=== PATIENT | female | born 1980 | race Caucasian/White ===

== ENCOUNTER 2018-06-15 08:44 | Inpatient (IN) | payer BC, OTHER ==
[~2018-06-15] VITALS: Ht 167.6 cm; Wt 95.0 kg
[~2018-06-15 08:44] MED LIST: CEFTRIAXONE; FIORICET TABLE1 EACH; FUROSEMIDE 40 MG; GABAPENTIN MC; K-DUR20 ME2; Z.0.DIAZEPAM10 MG PO; Z.0.LEVOTHYROXINE75 PO; Z.0.NORCO 10-325 T1 PO; Z.0.TEGRETOL200 MG PO; Z.0.ZOFRAN4 MG PO; [UNRECOGNIZED DRUG - OTHER]
[2018-06-15] MEDS ORDERED: ONDANSETRON HCL INJ 2 MG/ML VIAL IV STA (09:26)
[2018-06-15] MEDS ORDERED: KETOROLAC TROMETHAMINE 30 MG/ML VIAL IV STA (09:26)
[2018-06-15] MEDS ORDERED: FAMOTIDINE 20 MG/2 ML VIAL IV STA (09:26)
[2018-06-15] MEDS ORDERED: SODIUM CHLORIDE 0.9% 1000ML 1,000 ML IV ONE ×2 (09:30→11:15)
[2018-06-15] MEDS ORDERED: SODIUM CHLORIDE 0.9% 1000ML 1,000 ML ONE (09:32)
[2018-06-15 09:38] LABS: BASOPHILS % 0.5 % (0.0-1.0); EOSINOPHILS # (AUTO) 0.1 (0.0-0.4); EOSINOPHILS % 1.5 % (0.0-6.0); HEMATOCRIT 41.4 % (34.2-44.1); HEMOGLOBIN 13.7 g/dL (12.0-16.0); LYMPHOCYTES # (AUTO) 1.1 (1.0-3.2); LYMPHOCYTES % 16.6 % (18.0-39.1); MEAN CORPUSCULAR HEMOGLOBIN 29.7 pg (28-32); MEAN CORPUSCULAR HGB CONC 33.1 g/dL (31-35); MEAN CORPUSCULAR VOLUME 89.8 fL (81-99); MONOCYTES # (AUTO) 0.4 (0.2-0.8); MONOCYTES % 6.7 % (4.4-11.3); NEUTROPHILS # (AUTO) 4.9 (2.1-6.9); NEUTROPHILS % 74.5 % (38.7-80.0); PLATELET COUNT 288 x10e3/uL (140-360); RED BLOOD COUNT 4.61 x10e6/uL (3.6-5.1); RED CELL DISTRIBUTION WIDTH 15.2 % (11.7-14.4)
[2018-06-15 09:59] LABS: ALANINE AMINOTRANSFERASE 19 IU/L (0-55); ALBUMIN 3.9 g/dL (3.5-5.0); ALBUMIN/GLOBULIN RATIO 1.3 (0.8-2.0); ALKALINE PHOSPHATASE 56 IU/L (40-150); ANION GAP 13.6 mmol/L (8-16); BLOOD UREA NITROGEN 8 mg/dL (7-26); BUN/CREATININE RATIO 11 (6-25); CALCIUM 9.1 mg/dL (8.4-10.2); CARBON DIOXIDE 21 mmol/L (22-29); CHLORIDE 108 mmol/L (98-107); CREATININE, SERUM 0.76 mg/dL (0.57-1.11); EST GLOMERULAR FILTRATION RATE > 60 ML/MIN (60-); GLUCOSE 112 mg/dL (74-118); LIPASE 13 U/L (8-78); POTASSIUM 3.6 mmol/L (3.5-5.1); SODIUM 139 mmol/L (136-145)
[2018-06-15 10:48] LABS: CLARITY,URINE SL CLOUDY (CLEAR); COLOR,URINE AMBER (YELLOW); PROTEIN,URINE DIPSTICK 1+ (NEGATIVE); URINE UROBILINOGEN 0.2 mg/dL (0.2 - 1)
[2018-06-15 10:49] LABS: BILIRUBIN,URINE 2+ (NEGATIVE); KETONES,URINE 3+ (NEGATIVE); LEUKOCYTE ESTERASE ,URINE NEGATIVE (NEGATIVE); NITRITE,URINE NEGATIVE (NEGATIVE)
[2018-06-15 10:53] LABS: AMPHETAMINES SCREEN,URINE NEGATIVE (NEGATIVE); BENZODIAZEPINES SCREEN,URINE POSITIVE (NEGATIVE); PHENCYCLIDINE SCREEN,URINE NEGATIVE (NEGATIVE)
[2018-06-15 11:00] LABS: BACTERIA,URINE FEW /HPF; RBC,URINE 0-5 /HPF (0-5)
[2018-06-15 11:01] LABS: EPITHELIAL CELLS,URINE FEW /LPF; MUCUS,URINE FEW (RARE)
--- NOTE | 2018-06-15 11:56 | Diagnostic Imaging Report ---
EXAM: CT Abdomen and Pelvis WITH contrast INDICATION: \S\diffuse abd pain \[id number] \S\1020 COMPARISON: None. TECHNIQUE: Abdomen and pelvis were scanned utilizing a multidetector helical scanner from the lung base to the pubic symphysis after administration of IV contrast. Coronal and sagittal reformations were obtained. Routine protocol was performed. Scan was performed when during portal venous phase. IV CONTRAST: 100 mL of Isovue-370 ORAL CONTRAST: None. COMPLICATIONS: None RADIATION DOSE: Total DLP: 669.19 mGy*cm Estimated effective dose: (DLP x 0.015 x size factor) mSv CTDIvol has been reviewed. It is below the limits set by the Radiation Protocol Committee (RPC). FINDINGS: LINES and TUBES: Posterior lower back spine stimulator device in place with tip within spinal canal extending superiorly and outside the [id number] LOWER THORAX: Unremarkable HEPATOBILIARY: No focal hepatic lesions. No biliary ductal dilation. GALLBLADDER: No radio-opaque stones or sludge. No wall thickening. SPLEEN: No splenomegaly. PANCREAS: No focal masses or ductal dilatation. ADRENALS: No adrenal nodules KIDNEYS/URETERS: Kidneys enhance symmetrically. No hydronephrosis. No cystic or solid mass lesions. No stones. GI TRACT: No abnormal distention or evidence of bowel obstruction. Areas of mild colonic wall thickening, especially the transverse colon as seen on coronal image 54. Appendix is normal. PELVIC ORGANS/BLADDER: Retroverted uterus and adnexa are unremarkable on CT assessment. Bladder is under distended, limiting evaluation. LYMPH NODES: No lymphadenopathy. Nonspecific subcentimeter retroperitoneal lymph nodes. VESSELS: Unremarkable. PERITONEUM / RETROPERITONEUM: No free air or fluid. BONES: No acute osseous abnormality. Old bilateral inferior pubic rami fracture deformities. SOFT TISSUES: Unremarkable. Evidence of abdominal wall hernia repair with surgical mesh in place. IMPRESSION: 1. Areas of mild colonic wall thickening, could represent mild infectious/inflammatory colitis in the appropriate clinical setting. Otherwise, no acute inflammatory process in the abdomen/pelvis. Signed by: Dr. Hubert Barrera MD on 06/15/2018 11:52 AM
[2018-06-15 12:00] VITALS: BP 119/74
[2018-06-15] MEDS ORDERED: LEVOFLOXACIN 500MG/D5W 100ML IV SCH (12:45)
[2018-06-15] MEDS ORDERED: MORPHINE SULFATE 2 MG/ML SYR IV PRN (12:45)
[2018-06-15] MEDS: METRONIDAZOLE 500MG/NS 100ML 100 ML IV SCH ×3 (13:14→23:45)
[2018-06-15] MEDS: MORPHINE SULFATE INJ 4 MG/ML INJ IV PRN ×4 (13:14→22:19)
[2018-06-15] MEDS: ONDANSETRON HCL INJ 2 MG/ML VIAL IV PRN ×3 (13:14→22:19)
[2018-06-15] MEDS: LEVOFLOXACIN 500MG/D5W 100ML 100 ML IV SCH (14:03)
--- NOTE | 2018-06-15 14:48 | History and Physical ---
CHIEF COMPLAINT: Abdominal pain. HISTORY OF PRESENT ILLNESS: This is a 38-year-old white woman who presents to [facility] emergency room with a 2-3 week history of worsening abdominal pain accompanied with nausea, vomiting and diarrhea. The patient states that she was diagnosed with colitis 2 weeks ago at a urgent care clinic, and was prescribed oral ciprofloxacin and metronidazole. The patient states she could not take this medication because of nausea and vomiting. The patient states that her abdominal pain is quite severe. She is concerned because her mother also has issues with chronic abdominal pain. Moreover, the patient states she suffers from chronic neck and lower back pain, and actually had an appointment today with a neurosurgeon. The patient states that she alternates between Tylenol No. 4 and hydrocodone in the form of [place] for chronic neck and lower back pain. The patient also states that she is scheduled to see her digital media director tomorrow, namely Dr. Jay Moctezuma. In the emergency room, the patient had a normal comprehensive metabolic profile. Lactic acid level was also normal. Urinalysis done in the emergency room revealed 3+ ketones, otherwise unremarkable. Urine toxicology was positive for opiates, benzodiazepines, cocaine, and cannabinoids. The patient's complete blood count was normal. The patient underwent a CT of the abdomen and pelvis with contrast in the emergency room that revealed areas of mild colonic wall thickening that the radiologist thought could represent infectious/inflammatory colitis. No other acute abnormalities appreciated. The patient was admitted for further evaluation and treatment. REVIEW OF SYSTEMS GENERAL: The patient states she has lost 25 pounds in the last 3 weeks unintentionally. She has had shaking chills and subjective fever in the last few days. HEENT: No headaches. No visual changes. CARDIOVASCULAR: No chest pain, shortness of breath or cough. GI: As per HPI. No melena. No hematochezia. : No UTI symptoms. NEUROMUSCULAR: Complains of chronic neck and lower back pain. PAST MEDICAL HISTORY 1. Post cervical laminectomy syndrome. 2. Chronic neck and lower back pain. 3. Mild obesity. 4. Tobacco use. 5. Gastritis. 6. Hypothyroidism. ALLERGIES: PLASTIC TAPE. SURGICAL HISTORY 1. Cervical spine surgery multiple times. 2. Bilateral tubal ligation. 3. section 3 times. 4. Hernia repair. 5. Spinal cord stimulator implantation. SOCIAL HISTORY: The woman is . Lives with her . She is unemployed. No tobacco or drugs. Drinks alcohol occasionally. FAMILY HISTORY: The patient believes her mother also has chronic colitis. HOME MEDICATIONS 1. Fioricet 1 tablet daily as needed for headaches. 2. Tegretol 400 mg at night. 3. Diazepam 2 mg t.i.d. for back spasm. 4. Gabapentin 100 mg t.i.d. 5. [place] 5 per 325 mg 1-2 pills every 4 hours p.r.n. back pain. 6. Levothyroxine 75 mcg daily. 7. Methadone 10 mg once daily. 8. Zofran 4 mg twice a day as needed for nausea and vomiting. 9. Potassium chloride 40 mEq daily. PHYSICAL EXAMINATION GENERAL: She is awake, alert and fully oriented. She is pleasant and cooperative with exam. VITALS: Blood pressure is 126/97, pulse 75, respiratory rate 18, oxygen saturation 98% on room air, temperature 98. Height is 5 feet 6 inches and weight is 175 pounds. INTEGUMENT: Skin is warm and dry. No pallor or diaphoresis. HEENT: Anicteric sclerae. Dry mucous membranes. NECK: Supple. CARDIOVASCULAR: Tachycardic rate and regular rhythm. LUNGS: No rales. No rhonchi. No wheezing. ABDOMEN: Soft. She has exquisite tenderness in the entire abdomen particularly in the midepigastric and right lower quadrant area. No organomegaly or masses appreciated. EXTREMITIES: No edema or deformity. NEURO: Intact. IMPRESSION 1. Colitis. 2. Polysubstance abuse. 3. Gastritis. PLAN 1. Highly recommend that the patient stop using illicit drugs. 2. Intravenous fluids. 3. Intravenous antibiotics. 4. Antiemetics. 5. Consult gastroenterology. 6. Will check TSH level. I spent 45 minutes in the care of this patient. Job#: [id number] VINAYAK MARCELINO
[2018-06-15] MEDS ORDERED: IOPAMIDOL 370 MG/ML 200 ML INFUS..BTL INJ ONE (14:58)
[2018-06-15] MEDS ORDERED: SODIUM CHLORIDE 0.9% 50ML 50 ML ONE (14:58)
[2018-06-15 15:45] VITALS: BP 126/58
[2018-06-15 15:47] VITALS: BP 126/58
[2018-06-15] MEDS: SODIUM CHLORIDE 0.9% 1000ML 1,000 ML IV SCH (15:51)
[2018-06-15 16:00] VITALS: BP 126/58
[2018-06-15] MEDS: FAMOTIDINE 20 MG/2 ML VIAL IV SCH (16:46)
[2018-06-15] MEDS ORDERED: METRONIDAZOLE 500MG/NS 100ML IV SCH (18:00)
[2018-06-15 19:54] VITALS: BP 118/59
[2018-06-15 20:00] VITALS: BP 118/59
[2018-06-15] MEDS ORDERED: PANTOPRAZOLE 40 MG 10ML VIAL IV STA (21:58)
[2018-06-15] MEDS ORDERED: PANTOPRAZOL 40MG/SOD CHL 0.9% 250 ML IV SCH (22:00)
[2018-06-15] MEDS ORDERED: METOCLOPRAMIDE HCL 10 MG/2ML VIAL IV STA (22:02)
[2018-06-15] MEDS ORDERED: BISACODYL 5 MG TAB EC PO ONE ×3 (22:15→23:30)
[2018-06-15] MEDS ORDERED: METOCLOPRAMIDE HCL 10 MG/2ML VIAL IV ONE (22:15)
[2018-06-15] MEDS ORDERED: PANTOPRAZOLE 40 MG 10ML VIAL IV ONE (22:15)
[2018-06-15] MEDS ORDERED: CITRATE OF MAGNESIA 300ML BOTTLE PO ONE (23:00)
[2018-06-15] MEDS: PANTOPRAZOLE INJ 40 MG in SODIUM CHLORIDE 0.9% 50ML 50 ML IV SCH (23:09)
[2018-06-16] MEDS ORDERED: BISACODYL 5 MG TAB EC PO ONE
[2018-06-16] MEDS ORDERED: METOCLOPRAMIDE HCL 10 MG/2ML VIAL IV SCH
[2018-06-16 01:09] VITALS: BP 120/58
[2018-06-16] MEDS: ONDANSETRON HCL INJ 2 MG/ML VIAL IV PRN ×3 (02:00→10:40)
[2018-06-16] MEDS: MORPHINE SULFATE INJ 4 MG/ML INJ IV PRN ×3 (02:00→10:40)
[2018-06-16] MEDS: PANTOPRAZOLE INJ 40 MG in SODIUM CHLORIDE 0.9% 50ML 50 ML IV SCH ×2 (04:24→08:15)
[2018-06-16] MEDS: SODIUM CHLORIDE 0.9% 1000ML 1,000 ML IV SCH ×3 (04:45→10:55)
[2018-06-16] MEDS ORDERED: CITRATE OF MAGNESIA 300ML BOTTLE PO ONE (05:00)
[2018-06-16 05:23] LABS: BASOPHILS % 0.7 % (0.0-1.0); EOSINOPHILS # (AUTO) 0.1 (0.0-0.4); EOSINOPHILS % 2.3 % (0.0-6.0); HEMATOCRIT 34.8 % (34.2-44.1); HEMOGLOBIN 10.9 g/dL (12.0-16.0); LYMPHOCYTES # (AUTO) 1.4 (1.0-3.2); LYMPHOCYTES % 22.7 % (18.0-39.1); MEAN CORPUSCULAR HEMOGLOBIN 29.4 pg (28-32); MEAN CORPUSCULAR HGB CONC 31.3 g/dL (31-35); MEAN CORPUSCULAR VOLUME 93.8 fL (81-99); MONOCYTES # (AUTO) 0.5 (0.2-0.8); MONOCYTES % 7.9 % (4.4-11.3); NEUTROPHILS % 66.2 % (38.7-80.0); PLATELET COUNT 186 x10e3/uL (140-360); RED BLOOD COUNT 3.71 x10e6/uL (3.6-5.1)
[2018-06-16 05:46] LABS: ALANINE AMINOTRANSFERASE 13 IU/L (0-55); ALBUMIN 3.2 g/dL (3.5-5.0); ALBUMIN/GLOBULIN RATIO 1.7 (0.8-2.0); ALKALINE PHOSPHATASE 38 IU/L (40-150); ANION GAP 13.4 mmol/L (8-16); BLOOD UREA NITROGEN 7 mg/dL (7-26); BUN/CREATININE RATIO 11 (6-25); CARBON DIOXIDE 19 mmol/L (22-29); CHLORIDE 112 mmol/L (98-107); CREATININE, SERUM 0.66 mg/dL (0.57-1.11); EST GLOMERULAR FILTRATION RATE > 60 ML/MIN (60-); GLUCOSE 88 mg/dL (74-118); POTASSIUM 3.4 mmol/L (3.5-5.1); SODIUM 141 mmol/L (136-145)
[2018-06-16 05:48] VITALS: BP 113/59
[2018-06-16] MEDS: METOCLOPRAMIDE HCL 10 MG/2ML VIAL IV SCH ×3 (05:58→12:00)
[2018-06-16] MEDS: METRONIDAZOLE 500MG/NS 100ML 100 ML IV SCH ×2 (05:58→12:00)
[2018-06-16 08:00] VITALS: BP 113/59
[2018-06-16 08:09] VITALS: BP 146/87
[2018-06-16] MEDS: LEVOFLOXACIN 500MG/D5W 100ML 100 ML IV SCH (09:00)
[2018-06-16] MEDS: FAMOTIDINE 20 MG/2 ML VIAL IV SCH ×2 (09:00→17:00)
[2018-06-16] MEDS: PANTOPRAZOL 40MG/SOD CHL 0.9% 50 ML IV SCH ×2 (09:30→14:30)
[2018-06-16] MEDS ORDERED: POTASSIUM CHLORIDE 20MEQ/100ML 100 ML IV ONE (09:45)
[2018-06-16] MEDS ORDERED: POTASSIUM CHLORIDE 10 MEQ TABCR PO NR (09:45)
[2018-06-16 10:11] LABS: AMPHETAMINES SCREEN,URINE NEGATIVE (NEGATIVE); BENZODIAZEPINES SCREEN,URINE POSITIVE (NEGATIVE); PHENCYCLIDINE SCREEN,URINE NEGATIVE (NEGATIVE)
[2018-06-16 11:51] VITALS: BP 129/76
[2018-06-16] MEDS ORDERED: HYOSCYAMINE SULFATE 0.5 MG/ML AMP ONE (13:59)
[2018-06-16] MEDS ORDERED: PROPOFOL IV EMULSION 10 MG/ML 50 ML VIAL ONE (13:59)
[2018-06-16 15:45] LABS: WBC,FECAL (FECAL LACTOFERRIN) POSITIVE (NEGATIVE)
--- NOTE | 2018-06-16 15:47 | Operative Report ---
DATE OF PROCEDURE: June 16, 2018 REFERRING PHYSICIAN: Dr. Alexa Solis. PROCEDURE PERFORMED: Esophagogastroduodenoscopy with biopsies and a colonoscopy with polypectomy and biopsies. INDICATIONS FOR ESOPHAGOGASTRODUODENOSCOPY: Upper abdominal pain, nausea and vomiting. INDICATIONS FOR COLONOSCOPY: Crampy lower abdominal pain, diarrhea, colitis per CT scan. MEDICATION: Patient was done under MAC. Please see anesthesiologist's note. PROCEDURE: With the patient in the left lateral decubitus position, flexible fiberoptic Olympus gastroscope was introduced into the esophagus under direct visualization without any difficulty. There was some patchy erythema noted in distal esophagus. The scope was then advanced with ease into the stomach. Mucosa overlying the antrum and the body revealed some patchy erythema and low-grade to moderate edema and biopsies were obtained and sent to stain for H. pylori. Pylorus was of normal contour and shape, was intubated with ease, and the scope was advanced all the way to the 2nd portion of the duodenum. The scope was then withdrawn slowly. Mucosa overlying the proximal and 2nd portion and the duodenal bulb appeared to be within normal limits. The scope was then withdrawn back into the stomach and retroflexed and mucosa overlying the fundus and the cardia appeared to be within normal limits. The scope was then straightened out. The stomach was decompressed. The scope was subsequently withdrawn. Patient tolerated the procedure well. IMPRESSIONS 1. Distal esophagitis. 2. Gastritis, biopsied. Biopsies sent to stain for Helicobacter pylori. PLAN: Follow up histology. Initiate Protonix 40 mg 1 p.o. q.a.m. a.c. Patient was then turned around. After adequate lubrication of the anal canal, a flexible fiberoptic Olympus colonoscope was inserted into the rectum with ease and advanced all the way to the cecum. Mucosa overlying the cecum appeared to be within normal limits. The ileocecal valve was intubated and the scope was advanced into the terminal ileum. Mucosa overlying the terminal ileum revealed some patchy intense erythema and biopsies were obtained. The scope was then withdrawn back into the colon. The mucosa overlying the ascending and the transverse appeared to be within normal limits. There were some mild patchy inflammatory changes in the left colon. Random biopsies were obtained. One polyp was snared from the descending colon and one polyp was snared and one polyp was hot biopsied from the sigmoid colon. The scope was then retroflexed into the distal rectum and moderate-size internal hemorrhoids were noted, none of which were actively bleeding. The scope was then straightened out and was subsequently withdrawn after securing an adequate stool specimen that was sent for the appropriate stool studies. Patient tolerated the procedure well. IMPRESSIONS 1. Descending colon polyp, snared. 2. Mild patchy left-sided colitis. 3. Sigmoid colon polyps times 2, one snared, one hot biopsied. 4. Internal hemorrhoids, none actively bleeding. PLAN: Follow up histology. Follow up stool studies. Initiate GI soft diet. Patient might benefit from a followup colonoscopy in 3 years. Job#: [id number] TA cc:ALEXA SOLIS DO
[2018-06-16] MEDS ORDERED: FENTANYL CITRATE/PF 100MCG/2 ML INJ ONE (15:53)
[2018-06-16] MEDS ORDERED: MIDAZOLAM HCL 5MG/ML 2ML VIAL ONE (15:53)
[2018-06-16] MEDS ORDERED: KETAMINE HCL INJ 50 MG/ML 10 ML VIAL ONE (15:53)
[2018-06-16 15:55] VITALS: BP 127/67
[2018-06-17 13:41] LABS: C DIFFICILE TOXIN A&B AMP PROB NEGATIVE (NEGATIVE)
== END 2018-06-16 17:50 | disposition home or self-care (01) | DRG 392 ==
LOC: ER 08:44 → ERHOLD 12:57 → MED/SURG2 15:04
PROC: 0DB78ZX Excision of Stomach, Pylorus, Via Natural or Artificial Opening Endoscopic, Diagnostic (ICD-10-PCS; principal; 2018-06-16 13:00)
PROC: 0DBM8ZX Excision of Descending Colon, Via Natural or Artificial Opening Endoscopic, Diagnostic (ICD-10-PCS; 2018-06-16 13:00)
PROC: 0DBN8ZX Excision of Sigmoid Colon, Via Natural or Artificial Opening Endoscopic, Diagnostic (ICD-10-PCS; 2018-06-16 13:00)
PROC: 0DBB8ZX Excision of Ileum, Via Natural or Artificial Opening Endoscopic, Diagnostic (ICD-10-PCS; 2018-06-16 13:00)
DX: K52.9 Noninfective gastroenteritis and colitis, unspecified (principal); F19.10 Other psychoactive substance abuse, uncomplicated; K29.70 Gastritis, unspecified, without bleeding; K63.5 Polyp of colon; K64.8 Other hemorrhoids; F14.10 Cocaine abuse, uncomplicated; F12.10 Cannabis abuse, uncomplicated; F11.10 Opioid abuse, uncomplicated; G89.29 Other chronic pain
CPT/HCPCS: 36415; 74177; 80053; 80307; 81001; 83605; 83630; 83690; 83993; 84443; 84702; 85025; 87045; 87177; 87328; 87493; 88305; 88312; 99284; J1885; J1956; J1980; J2250; J2270; J2405; J2765; J3480; J7030; Q9967

== ENCOUNTER 2020-04-27 22:00 | Inpatient (IN) | payer OTHER ==
[~2020-04-27] VITALS: Ht 165.1 cm; Wt 93.1 kg
[2020-04-27 22:37] VITALS: BP 153/77
[2020-04-27 22:49] VITALS: BP 153/77
[2020-04-27] MEDS: ONDANSETRON HCL INJ 2MG/ML 2ML 2 MG/ML VIAL IV PRN (23:25)
[2020-04-27] MEDS: MORPHINE SULFATE 2 MG/ML SYR 1ML IV PRN (23:25)
[2020-04-28] VITALS (7 sets, daily range): BP systolic 118–140; BP diastolic 75–87
[2020-04-28] MEDS: MORPHINE SULFATE 2 MG/ML SYR 1ML IV PRN ×7 (04:00→20:15)
[2020-04-28 06:08] LABS: BASOPHILS % 0.3 % (0.0-1.0); EOSINOPHILS % 0.4 % (0.0-6.0); HEMATOCRIT 39.4 % (34.2-44.1); HEMOGLOBIN 12.8 g/dL (12.0-16.0); LYMPHOCYTES # (AUTO) 1.7 (1.0-3.2); LYMPHOCYTES % 22.8 % (18.0-39.1); MEAN CORPUSCULAR HEMOGLOBIN 31.7 pg (28-32); MEAN CORPUSCULAR HGB CONC 32.5 g/dL (31-35); MEAN CORPUSCULAR VOLUME 97.5 fL (81-99); MONOCYTES # (AUTO) 0.6 (0.2-0.8); NEUTROPHILS % 68.1 % (38.7-80.0); PLATELET COUNT 253 x10e3/uL (140-360); RED BLOOD COUNT 4.04 x10e6/uL (3.6-5.1); RED CELL DISTRIBUTION WIDTH 12.6 % (11.7-14.4)
[2020-04-28 06:34] LABS: ALANINE AMINOTRANSFERASE 9 IU/L (0-55); ALBUMIN 3.5 g/dL (3.5-5.0); ALBUMIN/GLOBULIN RATIO 1.2 (0.8-2.0); ALKALINE PHOSPHATASE 62 IU/L (40-150); AMYLASE 24 U/L (25-125); ANION GAP 14.1 mmol/L (8-16); BLOOD UREA NITROGEN 9 mg/dL (7-26); BUN/CREATININE RATIO 14 (6-25); CALCIUM 8.3 mg/dL (8.4-10.2); CARBON DIOXIDE 24 mmol/L (22-29); CHLORIDE 107 mmol/L (98-107); CREATININE, SERUM 0.64 mg/dL (0.57-1.11); EST GLOMERULAR FILTRATION RATE > 60 ML/MIN (60-); GLUCOSE 107 mg/dL (74-118); LIPASE 7 U/L (8-78); POTASSIUM 3.1 mmol/L (3.5-5.1); SODIUM 142 mmol/L (136-145)
[2020-04-28] MEDS: ONDANSETRON HCL INJ 2MG/ML 2ML 2 MG/ML VIAL IV PRN ×3 (06:53→16:45)
--- NOTE | 2020-04-28 07:00 | NUR ---
RCD PT AT BED PT IS ALERT AND ORIENTED PT RESTING ON BED IV PATENT NG TUBE AND LOW INTERMITTENT SUCTION WORKING WELL PT NPO BED LOW AND LOCKED CALL LIGHT IN REACH
--- NOTE | 2020-04-28 07:40 | NUR ---
PT NPO AND POTASSIUM LEVEL 3.1 PAGED AND NOTIFIED FAINA POTTER NO NEW ORDERS
[2020-04-28] MEDS: PANTOPRAZOLE 40 MG 10ML VIAL IV SCH ×2 (09:00→16:48)
[2020-04-28] MEDS: D5NS/KCL 20MEQ 1,000 ML IV SCH (09:30)
[2020-04-28] MEDS ORDERED: HYDRALAZINE HCL 20 MG/ML VIAL IV PRN (09:45)
[2020-04-28] MEDS ORDERED: ACETAMINOPHEN 325 MG TAB PO PRN (09:45)
[2020-04-28] MEDS ORDERED: POTASSIUM CHLORIDE 20MEQ/100ML 100 ML IV ONE (10:00)
[2020-04-28] MEDS: FAMOTIDINE 20 MG/2 ML VIAL IV SCH (10:35)
--- NOTE | 2020-04-28 11:50 | Diagnostic Imaging Report ---
Exam: KUB - 2 views Indication: Small bowel obstruction Comparison: None Findings: NG tube with tip and side-port in the stomach. Nonobstructive bowel gas pattern. No free air. No acute osseous injury. Old healed bilateral pubic fractures. A linear metallic structure projects over the L3 vertebral body. Impression: NG tube terminates in the stomach. Nonobstructive bowel gas pattern. No free air. Signed by: Paresh De La Cruz MD on 04/28/2020 11:46 AM
--- NOTE | 2020-04-28 18:41 | NUR ---
PT RESTING ON BED BED SIDE REPORT GIVEN TO ONCOMING NURSE
--- NOTE | 2020-04-28 19:20 | NUR ---
Patient received sitting up in bed. AAO x 4. Patient had no complaints of pain. Respirations even and non-labored. Safety measures implemented. NGT in left nares connected to LIWS. Patient instructed to call for assistance when needed. Call light within reach.
--- NOTE | 2020-04-28 19:35 | Consultation ---
DATE OF CONSULTATION: 04/28/2020 CHIEF COMPLAINT: Abdominal pain. HISTORY OF PRESENT ILLNESS: The patient is a 39-year-old female with 2-day history of pain in the periumbilical region with nausea and vomiting. She denies fever or chills. No diarrhea. PAST MEDICAL HISTORY: Significant for morbid obesity, hypothyroidism, post cervical laminectomy syndrome, chronic back and neck pain. PAST SURGICAL HISTORY: Positive for abdominal hernia repair x2 with mesh, cervical spine surgery, tubal ligation, C-sections, and spinal cord stimulator implantation. ALLERGIES: THE PATIENT DENIED DRUG ALLERGIES. SOCIAL HABITS: She denies smoking or alcohol use. REVIEW OF SYSTEMS: She denies chest pain, shortness of breath, cough, or fevers. PHYSICAL EXAMINATION: VITAL SIGNS: Stable. She is afebrile. GENERAL: The patient is awake, alert, in moderate discomfort. HEENT: Sclerae nonicteric. NECK: Supple. LUNGS: Clear. HEART: Regular rate and rhythm. ABDOMEN: Mildly distended with some guarding in the epigastrium. NG tube put out bilious fluid in copious amount. EXTREMITIES: No cyanosis or edema. LABORATORY DATA: White cell count is 7 and hemoglobin of 12. Creatinine of 0.6. Liver function tests unremarkable. X-ray of the abdomen showed NG tube in stomach with nonobstructive bowel pattern. ASSESSMENT: Intestinal obstruction, likely secondary to adhesions from multiple abdominal surgery. PLAN: Continue NG tube and ice chips. Serial abdominal exam and x-ray. Esau Almaguer MD DNRoxy/MODL /[id number]
[2020-04-29] VITALS (8 sets, daily range): BP systolic 114–164; BP diastolic 66–90
[2020-04-29] MEDS: MORPHINE SULFATE 2 MG/ML SYR 1ML IV PRN ×6 (00:23→19:27)
[2020-04-29] MEDS: D5NS/KCL 20MEQ 1,000 ML IV SCH (00:23)
[2020-04-29 05:34] LABS: BASOPHILS % 0.6 % (0.0-1.0); EOSINOPHILS # (AUTO) 0.1 (0.0-0.4); EOSINOPHILS % 1.3 % (0.0-6.0); HEMOGLOBIN 12.7 g/dL (12.0-16.0); LYMPHOCYTES # (AUTO) 1.9 (1.0-3.2); LYMPHOCYTES % 27.1 % (18.0-39.1); MEAN CORPUSCULAR HEMOGLOBIN 31.7 pg (28-32); MEAN CORPUSCULAR HGB CONC 32.6 g/dL (31-35); MEAN CORPUSCULAR VOLUME 97.3 fL (81-99); MONOCYTES # (AUTO) 0.6 (0.2-0.8); MONOCYTES % 8.7 % (4.4-11.3); NEUTROPHILS # (AUTO) 4.4 (2.1-6.9); PLATELET COUNT 318 x10e3/uL (140-360); RED BLOOD COUNT 4.01 x10e6/uL (3.6-5.1); RED CELL DISTRIBUTION WIDTH 12.5 % (11.7-14.4)
[2020-04-29 05:58] LABS: ALANINE AMINOTRANSFERASE 10 IU/L (0-55); ALBUMIN 3.4 g/dL (3.5-5.0); ALBUMIN/GLOBULIN RATIO 1.3 (0.8-2.0); ALKALINE PHOSPHATASE 70 IU/L (40-150); ANION GAP 9.2 mmol/L (8-16); BLOOD UREA NITROGEN 14 mg/dL (7-26); BUN/CREATININE RATIO 18 (6-25); CALCIUM 8.5 mg/dL (8.4-10.2); CARBON DIOXIDE 32 mmol/L (22-29); CHLORIDE 110 mmol/L (98-107); CREATININE, SERUM 0.76 mg/dL (0.57-1.11); EST GLOMERULAR FILTRATION RATE > 60 ML/MIN (60-); GLUCOSE 113 mg/dL (74-118); MAGNESIUM 1.9 MG/DL (1.3-2.1); POTASSIUM 3.2 mmol/L (3.5-5.1); SODIUM 148 mmol/L (136-145)
--- NOTE | 2020-04-29 06:43 | NUR ---
Walking rounds done. Patient resting comfortably. Bed-side shift report given to oncoming nurse regarding patient's status.
--- NOTE | 2020-04-29 07:40 | Diagnostic Imaging Report ---
EXAM: Abdomen Radiograph 1 View(s) INDICATION: ^sbo ^[id number] ^[id number] COMPARISON: 04/28/2020 FINDINGS: The nasogastric tube overlies the stomach. The bowel gas pattern remains nonspecific. No abnormal abdominal soft tissue calcification. No acute osseous abnormality. No free intraperitoneal air. IMPRESSION: Nonspecific bowel gas pattern. Signed by: Jose Blount MD on 04/29/2020 7:36 AM
--- NOTE | 2020-04-29 08:30 | NUR ---
dc ng tube by order 500 ml in the bottle
[2020-04-29] MEDS: ONDANSETRON HCL INJ 2MG/ML 2ML 2 MG/ML VIAL IV PRN ×2 (08:50→19:27)
[2020-04-29] MEDS: PANTOPRAZOLE 40 MG 10ML VIAL IV SCH ×2 (09:00→17:00)
[2020-04-29] MEDS: FAMOTIDINE 20 MG/2 ML VIAL IV SCH ×2 (09:00→17:00)
[2020-04-29] MEDS ORDERED: POTASSIUM CHLORIDE 20 MEQ TAB CR PO ONE (10:30)
--- NOTE | 2020-04-29 18:56 | NUR ---
PT RESTING ON BED BED SIDE REPORT GIVEN TO ONCOMING NURSE
--- NOTE | 2020-04-29 19:30 | NUR ---
received report from day nurse. patient is resting comfortably in the bed. bed is in lowest position and call light is within reach. will continue to monitor patient.
[2020-04-30] VITALS (8 sets, daily range): BP systolic 117–145; BP diastolic 80–86
[2020-04-30] MEDS: MORPHINE SULFATE 2 MG/ML SYR 1ML IV PRN ×7 (00:01→23:35)
[2020-04-30 06:08] LABS: BASOPHILS % 0.4 % (0.0-1.0); EOSINOPHILS # (AUTO) 0.1 (0.0-0.4); EOSINOPHILS % 1.4 % (0.0-6.0); HEMATOCRIT 40.6 % (34.2-44.1); HEMOGLOBIN 13.4 g/dL (12.0-16.0); LYMPHOCYTES # (AUTO) 1.7 (1.0-3.2); LYMPHOCYTES % 22.5 % (18.0-39.1); MEAN CORPUSCULAR HEMOGLOBIN 32.5 pg (28-32); MEAN CORPUSCULAR VOLUME 98.5 fL (81-99); MONOCYTES # (AUTO) 0.6 (0.2-0.8); MONOCYTES % 7.5 % (4.4-11.3); NEUTROPHILS # (AUTO) 5.2 (2.1-6.9); NEUTROPHILS % 67.9 % (38.7-80.0); PLATELET COUNT 312 x10e3/uL (140-360); RED BLOOD COUNT 4.12 x10e6/uL (3.6-5.1); RED CELL DISTRIBUTION WIDTH 12.3 % (11.7-14.4)
--- NOTE | 2020-04-30 06:40 | NUR ---
patient is resting comfortably in the bed. bed is in the lowest position and call light is within reach.
[2020-04-30 06:45] LABS: ALANINE AMINOTRANSFERASE 35 IU/L (0-55); ALBUMIN 3.7 g/dL (3.5-5.0); ALBUMIN/GLOBULIN RATIO 1.3 (0.8-2.0); ALKALINE PHOSPHATASE 85 IU/L (40-150); ANION GAP 12.2 mmol/L (8-16); BLOOD UREA NITROGEN 15 mg/dL (7-26); BUN/CREATININE RATIO 20 (6-25); CALCIUM 8.9 mg/dL (8.4-10.2); CARBON DIOXIDE 26 mmol/L (22-29); CHLORIDE 107 mmol/L (98-107); CREATININE, SERUM 0.75 mg/dL (0.57-1.11); EST GLOMERULAR FILTRATION RATE > 60 ML/MIN (60-); GLUCOSE 95 mg/dL (74-118); MAGNESIUM 1.8 MG/DL (1.3-2.1); POTASSIUM 3.2 mmol/L (3.5-5.1); SODIUM 142 mmol/L (136-145)
--- NOTE | 2020-04-30 07:48 | NUR ---
informed Ya Wesley NP of pt's potassium level this morning. no new orders received. will continue to monitor.
[2020-04-30] MEDS: PANTOPRAZOLE 40 MG 10ML VIAL IV SCH ×2 (09:23→16:24)
[2020-04-30] MEDS: FAMOTIDINE 20 MG/2 ML VIAL IV SCH ×2 (09:23→16:24)
[2020-04-30] MEDS ORDERED: POTASSIUM CHLORIDE 20 MEQ TAB CR PO ONE (10:00)
[2020-04-30] MEDS ORDERED: BISACODYL 10 MG SUPP PR ONE (10:00)
[2020-04-30] MEDS ORDERED: POTASSIUM CHLORIDE 20 MEQ TAB CR PO STA (19:38)
--- NOTE | 2020-04-30 19:38 | NUR ---
received new order from Dr Moctezuma for potassium replacement
[2020-04-30] MEDS: ONDANSETRON HCL INJ 2MG/ML 2ML 2 MG/ML VIAL IV PRN (20:06)
[2020-05-01] VITALS (9 sets, daily range): BP systolic 101–145; BP diastolic 72–81
[2020-05-01] MEDS: MORPHINE SULFATE 2 MG/ML SYR 1ML IV PRN ×5 (05:00→20:51)
[2020-05-01] MEDS: ONDANSETRON HCL INJ 2MG/ML 2ML 2 MG/ML VIAL IV PRN (05:00)
[2020-05-01 05:12] LABS: BASOPHILS % 0.5 % (0.0-1.0); EOSINOPHILS # (AUTO) 0.1 (0.0-0.4); EOSINOPHILS % 1.5 % (0.0-6.0); HEMATOCRIT 37.4 % (34.2-44.1); HEMOGLOBIN 12.3 g/dL (12.0-16.0); LYMPHOCYTES % 25.8 % (18.0-39.1); MEAN CORPUSCULAR HEMOGLOBIN 31.5 pg (28-32); MEAN CORPUSCULAR HGB CONC 32.9 g/dL (31-35); MEAN CORPUSCULAR VOLUME 95.9 fL (81-99); MONOCYTES # (AUTO) 0.7 (0.2-0.8); NEUTROPHILS % 62.9 % (38.7-80.0); PLATELET COUNT 296 x10e3/uL (140-360); RED CELL DISTRIBUTION WIDTH 12.3 % (11.7-14.4)
[2020-05-01 05:49] LABS: ALANINE AMINOTRANSFERASE 77 IU/L (0-55); ALBUMIN 3.4 g/dL (3.5-5.0); ALBUMIN/GLOBULIN RATIO 1.3 (0.8-2.0); ALKALINE PHOSPHATASE 74 IU/L (40-150); ANION GAP 10.9 mmol/L (8-16); BLOOD UREA NITROGEN 6 mg/dL (7-26); BUN/CREATININE RATIO 8 (6-25); CALCIUM 8.6 mg/dL (8.4-10.2); CARBON DIOXIDE 29 mmol/L (22-29); CHLORIDE 107 mmol/L (98-107); CREATININE, SERUM 0.78 mg/dL (0.57-1.11); EST GLOMERULAR FILTRATION RATE > 60 ML/MIN (60-); GLUCOSE 100 mg/dL (74-118); MAGNESIUM 1.8 MG/DL (1.3-2.1); POTASSIUM 3.9 mmol/L (3.5-5.1); SODIUM 143 mmol/L (136-145)
--- NOTE | 2020-05-01 07:00 | NUR ---
RCD PT AT BED PT IS ALERT AND ORIENTED PT RESTING ON BED IV PATENT BY SALINE FLUSH BED LOW AND LOCKED CALL LIGHT IN REACH
[2020-05-01] MEDS: FAMOTIDINE 20 MG/2 ML VIAL IV SCH ×2 (08:29→17:12)
[2020-05-01] MEDS: PANTOPRAZOLE 40 MG 10ML VIAL IV SCH ×2 (08:29→17:12)
--- NOTE | 2020-05-01 11:15 | NUR ---
MD IN TO SEE PATIENT, NEW ORDER RECEIVED.
--- NOTE | 2020-05-01 14:39 | NUR ---
PATIENT HAD A BM. NOTIFIED, NEW ORDER RECEIVED TO CANCEL CT SCAN AND ADVANCE DIET TO GI SOFT.
--- NOTE | 2020-05-01 19:21 | NUR ---
BEDSIDE SHIFT REPORT GIVEN TO ON COMING NURSE.
--- NOTE | 2020-05-01 19:23 | NUR ---
RECEIVED REPORT FROM GERMAN NURSE.
--- NOTE | 2020-05-02 | NUR ---
DR. QUINN GAMBOA VISITED, PATIENT RESTING IN BED, STATED TO MD SHE'S FEELING BETTER, PATIENT STATED TO HIM THAT SHE HAD 3 BOWEL MOVEMENTS, HE STATED TO THE MD THAT HER STOOL WAS SOFT BUT TO ME EARLIER SHE STATED IT WAS HARD. WILL CONTINUE TO MONITOR. CALL LIGHT IN REACH. MEDICATE ORDERED.
[2020-05-02] MEDS: ONDANSETRON HCL INJ 2MG/ML 2ML 2 MG/ML VIAL IV PRN ×2 (00:53→09:29)
[2020-05-02] MEDS: MORPHINE SULFATE 2 MG/ML SYR 1ML IV PRN ×3 (00:53→09:29)
[2020-05-02 00:58] VITALS: BP 115/81
[2020-05-02 05:11] VITALS: BP 114/66
[2020-05-02 05:37] LABS: BASOPHILS % 0.4 % (0.0-1.0); EOSINOPHILS # (AUTO) 0.2 (0.0-0.4); EOSINOPHILS % 1.6 % (0.0-6.0); HEMATOCRIT 37.3 % (34.2-44.1); HEMOGLOBIN 12.1 g/dL (12.0-16.0); LYMPHOCYTES # (AUTO) 1.9 (1.0-3.2); MEAN CORPUSCULAR HEMOGLOBIN 31.4 pg (28-32); MEAN CORPUSCULAR HGB CONC 32.4 g/dL (31-35); MEAN CORPUSCULAR VOLUME 96.9 fL (81-99); MONOCYTES # (AUTO) 0.8 (0.2-0.8); MONOCYTES % 8.2 % (4.4-11.3); NEUTROPHILS # (AUTO) 6.5 (2.1-6.9); NEUTROPHILS % 69.4 % (38.7-80.0); PLATELET COUNT 289 x10e3/uL (140-360); RED BLOOD COUNT 3.85 x10e6/uL (3.6-5.1); RED CELL DISTRIBUTION WIDTH 12.4 % (11.7-14.4)
[2020-05-02 06:09] LABS: ALANINE AMINOTRANSFERASE 55 IU/L (0-55); ALBUMIN 3.1 g/dL (3.5-5.0); ALBUMIN/GLOBULIN RATIO 1.2 (0.8-2.0); ALKALINE PHOSPHATASE 69 IU/L (40-150); ANION GAP 12.9 mmol/L (8-16); BLOOD UREA NITROGEN 7 mg/dL (7-26); BUN/CREATININE RATIO 9 (6-25); CALCIUM 8.7 mg/dL (8.4-10.2); CARBON DIOXIDE 28 mmol/L (22-29); CHLORIDE 108 mmol/L (98-107); CREATININE, SERUM 0.77 mg/dL (0.57-1.11); EST GLOMERULAR FILTRATION RATE > 60 ML/MIN (60-); GLUCOSE 97 mg/dL (74-118); MAGNESIUM 1.9 MG/DL (1.3-2.1); POTASSIUM 3.9 mmol/L (3.5-5.1); SODIUM 145 mmol/L (136-145)
--- NOTE | 2020-05-02 06:14 | NUR ---
PATIENT WAS MEDICATED EARLIER FOR COMPLAINT OF ABDOMINAL PAIN. CONTINUE RESTING IN BED WATCHING TV, CALL LIGHT REMAIN IN REACH. WILL CONTINUE TO MONITOR.
--- NOTE | 2020-05-02 07:00 | NUR ---
Received bedside shift report from off going night nurse. Patient in stable condition, no s/s of distress noted. No pain voiced. Bed in lowest position and locked. Call light within reach.
--- NOTE | 2020-05-02 07:04 | NUR ---
REPORT GIVEN TO AM NURSE. PATIENT CONTINUE RESTING, NO COMPLAINTS OF PAIN. CALL LIGHT IN REACH.
[2020-05-02 07:22] VITALS: BP 124/87
[2020-05-02 08:10] VITALS: BP 125/87
[2020-05-02] MEDS: PANTOPRAZOLE 40 MG 10ML VIAL IV SCH (08:15)
[2020-05-02] MEDS: FAMOTIDINE 20 MG/2 ML VIAL IV SCH (08:15)
[2020-05-02] MEDS ORDERED: DOCUSATE SODIU100 MG PO (10:02)
[2020-05-02] MEDS ORDERED: PANTOPRAZOLE SO40 MG PO (10:02)
--- NOTE | 2020-05-02 10:30 | NUR ---
Pt thankful for compassionate care during hospitalization. Pt states she will d/c soon. [employer] provided hospitality and instructions on how to contact a computer systems software architect if needed. No need to follow at this time. QUIQUE HUYNH [facility] Spiritual Care Department O: [phone]
--- NOTE | 2020-05-02 11:07 | NUR ---
Patient discharged home -Patient off the unit @ 1047 via wheelchair accompanied by PCT to the lobby. Patient in stable condition, No s/s of distress noted. No pain voiced. IV access removed with tip intact. All personal items taken with the patient. Discharge teaching and instructions given to the patient. Patient verbalized understanding. Prescriptions along with discharge paperwork given to the patient.
--- NOTE | 2020-05-02 22:24 | Discharge Summary ---
ADMISSION DIAGNOSES: 1. Small bowel obstruction. 2. Obesity with BMI of 34.1. 3. Hypokalemia. DISCHARGE DIAGNOSES: 1. Small bowel obstruction. 2. Obesity with BMI of 34.1. 3. Hypokalemia. HISTORY: Chronic back pain. SURGICAL HISTORY: Back surgery, umbilical hernia repair, x3. FAMILY HISTORY: Noncontributory. SOCIAL HISTORY: The patient admits to smoking less than one pack of cigarettes a day and occasional alcohol use. HOSPITAL COURSE: A 39-year-old female admitted with complaints of periumbilical abdominal pain described as twisting for the last 3 weeks. She had associated nausea and vomiting. Symptoms continued to worsen, so she came to the ER. She admits to having a liquid stool on the day prior to admission. On admission, outpatient CT of the abdomen and pelvis showed small bowel dilation. The patient was kept n.p.o. IV fluids were started. GI and Surgery were consulted. The patient had an NG tube placed and diet was advanced as tolerated. Prior to discharge, the patient had multiple bowel movements and is tolerating a regular diet. She was discharged home with new prescriptions for Colace and Protonix. She will follow up with primary care and GI in 1 to 2 weeks. The patient understands instructions and agrees to plan. Dictated by Ya Wesley NP Freddy Aburto MD DION/MODL /[id number]
== END 2020-05-02 10:47 | disposition home or self-care (01) | DRG 390 ==
LOC: MED/SURG2 22:00 → OBSVTOIN 04-28 10:41
PROVIDERS: ADMIT Internal Medicine; ATTEND Internal Medicine
DX: K56.51 Intestinal adhesions [bands], with partial obstruction (principal); E66.9 Obesity, unspecified; E87.6 Hypokalemia; Z91.048 Other nonmedicinal substance allergy status; Z72.0 Tobacco use; E03.9 Hypothyroidism, unspecified; Z86.010 Personal history of colon polyps; Z68.34 Body mass index [BMI] 34.0-34.9, adult; Z11.59 Encounter for screening for other viral diseases
CPT/HCPCS: 36415; 74018; 74019; 80053; 82150; 83690; 83735; 85025; 87635; G0378; J2270; J2405; J3480

== ENCOUNTER → 2020-09-01 | Outpatient (CLI) | payer OTHER ==
[~2020-09-01] MED LIST changes: +DOCUSATE SODIU100 MG PO; +PANTOPRAZOLE SO40 MG PO
== END ==
LOC: MRI 14:19
PROVIDERS: ATTEND Neurological Surgery
DX: M50.122 Cervical disc disorder at C5-C6 level with radiculopathy (principal); M47.12 Other spondylosis with myelopathy, cervical region
CPT/HCPCS: 72050; 72141

== ENCOUNTER 2021-11-21 17:11 | Emergency (ER) | payer OTHER ==
[~2021-11-21] VITALS: Ht 165.1 cm; Wt 105.8 kg
[~2021-11-21 17:11] MED LIST changes: +AZITHROMYCIN250 MG PO; +LEVOFLOXACIN500 MG PO; +PREDNISONE20 MG PO; +PROVENTIL HFA6.7 GM INH
[2021-11-21] MEDS ORDERED: ONDANSETRON HCL 4 MG ORAL DISINTEGRATING TAB PO ONE (17:45)
[2021-11-21] MEDS ORDERED: MECLIZINE HCL 12.5 MG TAB PO ONE (17:45)
[2021-11-21] MEDS ORDERED: LEVOTHYROXINE75 MCG PO (18:12)
[2021-11-21] MEDS ORDERED: MECLIZINE HCL 12.5 MG TAB ONE (18:25)
[2021-11-21] MEDS ORDERED: ONDANSETRON HCL 4 MG ORAL DISINTEGRATING TAB ONE ×2 (18:25→18:26)
[2021-11-21] MEDS ORDERED: MECLIZINE HCL25 MG PO (19:04)
== END 2021-11-21 19:25 | disposition home or self-care (01) ==
LOC: FSED 17:42
DX: R42 Dizziness and giddiness (principal); K21.9 Gastro-esophageal reflux disease without esophagitis; E03.9 Hypothyroidism, unspecified; M54.9 Dorsalgia, unspecified; G89.29 Other chronic pain; F17.210 Nicotine dependence, cigarettes, uncomplicated
CPT/HCPCS: 70450; 80053; 85025; 99284; J8597; Q0162; 93005

== ENCOUNTER 2021-12-22 14:30 | Emergency (ER) | payer OTHER ==
[~2021-12-22] VITALS: Ht 167.6 cm; Wt 104.8 kg
[~2021-12-22 14:30] MED LIST changes: +LEVOTHYROXINE75 MCG PO; +MECLIZINE HCL25 MG PO
[2021-12-22] MEDS ORDERED: ONDANSETRON HCL INJ 2MG/ML 2ML 2 MG/ML VIAL IV STA (15:42)
[2021-12-22] MEDS ORDERED: FAMOTIDINE 20 MG/2 ML VIAL IV STA (15:42)
[2021-12-22] MEDS ORDERED: KETOROLAC TROMETHAMINE 30 MG/ML VIAL IV STA (15:42)
[2021-12-22] MEDS ORDERED: SODIUM CHLORIDE 0.9% 1000ML 1,000 ML IV SCH (15:45)
[2021-12-22] MEDS ORDERED: SODIUM CHLORIDE 0.9% 50ML 50 ML ONE (16:02)
[2021-12-22] MEDS ORDERED: IOPAMIDOL 370 MG/ML 200 ML INFUS..BTL INJ ONE (16:02)
[2021-12-22] MEDS ORDERED: SODIUM CHLORIDE 0.9% 1000ML 1,000 ML ONE (16:12)
[2021-12-22] MEDS ORDERED: ONDANSETRON HCL INJ 2MG/ML 2ML 2 MG/ML VIAL ONE (16:12)
[2021-12-22] MEDS ORDERED: KETOROLAC TROMETHAMINE 30 MG/ML VIAL ONE (16:12)
[2021-12-22] MEDS ORDERED: FAMOTIDINE 20 MG/2 ML VIAL IV ONE (16:13)
[2021-12-22] MEDS ORDERED: METHYLPREDNISOLONE SOD SUCC 125 MG/2ML VIAL IV ONE (16:30)
[2021-12-22] MEDS ORDERED: DIPHENHYDRAMINE HCL INJ 50 MG/ML VIAL IV ONE (16:30)
[2021-12-22] MEDS ORDERED: DIPHENHYDRAMINE HCL INJ 50 MG/ML VIAL ONE (16:49)
[2021-12-22] MEDS ORDERED: METHYLPREDNISOLONE SOD SUCC 125 MG/2ML VIAL ONE (16:49)
[2021-12-22] MEDS ORDERED: ONDANSETRON ODT4 MG PO (19:31)
[2021-12-22] MEDS ORDERED: PANTOPRAZOLE SO40 MG PO (19:32)
[2021-12-22 19:36] VITALS: BP 151/79
== END 2021-12-22 19:36 | disposition home or self-care (01) ==
LOC: FSED 14:56
DX: L29.9 Pruritus, unspecified (principal); K52.9 Noninfective gastroenteritis and colitis, unspecified; R11.2 Nausea with vomiting, unspecified; R10.11 Right upper quadrant pain; B34.9 Viral infection, unspecified; K21.9 Gastro-esophageal reflux disease without esophagitis; E03.9 Hypothyroidism, unspecified; F41.9 Anxiety disorder, unspecified; T50.995A Adverse effect of other drugs, medicaments and biological substances, initial encounter
CPT/HCPCS: 71046; 74177; 80048; 80076; 81003; 81025; 85025; 99284; J1200; J1885; J2405; J2930; J7030; Q9967

== ENCOUNTER → 2022-01-07 | Day surgery (SDC) | payer OTHER ==
[~2022-01-07] MED LIST changes: +BACLOFEN20 MG PO; +FENTANYL CITRATE/PF 100MCG/2 ML INJ ONE; +LIDOCAINE HCL 2% LOCAL INJ 5 ML SDV VIAL INJ ONE; +METOCLOPRAMIDE HCL 10 MG/2ML VIAL ONE; +MIDAZOLAM HCL 2 MG/2 ML VIAL ONE; +ONDANSETRON ODT4 MG PO; +POVIDONE IODINE 0.05% 0.05 % ML PO ONE; +PROPOFOL IV EMULSION 10 MG/ML 20 ML VIAL ONE
[2022-01-07 12:07] VITALS: BP 103/77
== END | disposition home or self-care (01) ==
LOC: OR 09:16
PROVIDERS: ATTEND Internal Medicine Gastroenterology
DX: K29.70 Gastritis, unspecified, without bleeding (principal); D12.3 Benign neoplasm of transverse colon; K51.90 Ulcerative colitis, unspecified, without complications; K20.90 Esophagitis, unspecified without bleeding; K21.9 Gastro-esophageal reflux disease without esophagitis; K57.30 Diverticulosis of large intestine without perforation or abscess without bleeding; K64.8 Other hemorrhoids; E66.01 Morbid (severe) obesity due to excess calories; E03.9 Hypothyroidism, unspecified; J45.909 Unspecified asthma, uncomplicated; F41.9 Anxiety disorder, unspecified; F17.210 Nicotine dependence, cigarettes, uncomplicated; R03.0 Elevated blood-pressure reading, without diagnosis of hypertension; Z71.3 Dietary counseling and surveillance; Z88.6 Allergy status to analgesic agent; Z88.1 Allergy status to other antibiotic agents; Z91.048 Other nonmedicinal substance allergy status; Z01.812 Encounter for preprocedural laboratory examination; Z20.822 Contact with and (suspected) exposure to COVID-19; Z79.899 Other long term (current) drug therapy; Z68.37 Body mass index [BMI] 37.0-37.9, adult; Z98.1 Arthrodesis status; Z71.6 Tobacco abuse counseling
CPT/HCPCS: 36415; 43239; 45380; 45385; 81025; 85651; 86141; 86256; 86671; J2001; J2250; J2704; J2765; J3010; U0002; 45378

== ENCOUNTER 2022-09-08 13:22 | Emergency (ER) | payer OTHER ==
[~2022-09-08] VITALS: Ht 167.6 cm; Wt 107.6 kg
[~2022-09-08 13:22] MED LIST changes: -FENTANYL CITRATE/PF 100MCG/2 ML INJ ONE; -LIDOCAINE HCL 2% LOCAL INJ 5 ML SDV VIAL INJ ONE; -METOCLOPRAMIDE HCL 10 MG/2ML VIAL ONE; -MIDAZOLAM HCL 2 MG/2 ML VIAL ONE; -POVIDONE IODINE 0.05% 0.05 % ML PO ONE; -PROPOFOL IV EMULSION 10 MG/ML 20 ML VIAL ONE
[2022-09-08] MEDS ORDERED: SUBOXONE 8 MG-1 EAC2 (13:49)
== END 2022-09-08 14:09 | disposition home or self-care (01) ==
LOC: FSED 13:41
DX: R21 Rash and other nonspecific skin eruption (principal); E03.9 Hypothyroidism, unspecified; K21.9 Gastro-esophageal reflux disease without esophagitis; M54.9 Dorsalgia, unspecified; G89.29 Other chronic pain; F17.210 Nicotine dependence, cigarettes, uncomplicated
CPT/HCPCS: 99282

== ENCOUNTER → 2023-02-12 | Outpatient (CLI) | payer OTHER ==
[~2023-02-12] MED LIST changes: +SUBOXONE 8 MG-1 EAC2
== END ==
LOC: RAD 11:05
PROVIDERS: ATTEND Internal Medicine Pulmonary Disease
DX: J42 Unspecified chronic bronchitis (principal)
CPT/HCPCS: 71046

== ENCOUNTER 2024-09-05 10:29 | Emergency (ER) | payer OTHER ==
[~2024-09-05] VITALS: Ht 165.1 cm; Wt 111.3 kg
[2024-09-05] MEDS ORDERED: BACTRIM DS TAB1 EACH PO (12:50)
[2024-09-05] MEDS ORDERED: PYRIDIUM100 MG PO (12:50)
[2024-09-05 13:38] VITALS: PULSE 98; RESP 18; TEMP 98.3; O2SAT 99
== END 2024-09-05 13:38 | disposition home or self-care (01) ==
LOC: FSED 10:41
DX: R30.0 Dysuria (principal); N39.0 Urinary tract infection, site not specified; D64.9 Anemia, unspecified; N93.8 Other specified abnormal uterine and vaginal bleeding; R10.2 Pelvic and perineal pain
CPT/HCPCS: 76830; 76856; 80053; 80307; 81003; 81025; 85025; 85610; 99284